=== PATIENT | female | born 1995 | race Caucasian/White ===

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

== ENCOUNTER 2017-05-05 15:13 | Emergency (ER) | END 2017-05-05 20:45 | disposition home or self-care (01) ==

== ENCOUNTER 2017-06-24 19:55 | Emergency (ER) | END 2017-06-24 22:53 | disposition home or self-care (01) ==

== ENCOUNTER 2017-10-06 11:18 | Emergency (ER) | END 2017-10-06 17:09 | disposition home or self-care (01) ==

== ENCOUNTER 2018-07-20 16:49 | Emergency (ER) | payer MEDICAID ==
[~2018-07-20] VITALS: Ht 154.9 cm; Wt 60.2 kg
[~2018-07-20 16:49] MED LIST changes: +ACET500C5 PO; +MEDR10TA2 PO; +NEOM1PAC TP; +TYL500 PO
[2018-07-20 17:45] VITALS: Ht 154.9 cm; Wt 60.2 kg
[2018-07-20] MEDS ORDERED: ONDANSETRON (ODT) 4 MG TAB ODT STA (18:58)
[2018-07-20] MEDS ORDERED: MECLIZINE 12.5 MG TAB PO ONE (19:00)
--- NOTE | 2018-07-20 19:00 | ERD ---
ER Documentation Chief Complaint Chief Complaint headache and dizziness today, had baby 06/04 HPI 22-year-old female, presents the emergency department, complaining of acute episode of dizziness, described as things spinning around, associated with nausea but no vomiting. The patient reports history of anemia and is a status post normal spontaneous vaginal delivery 8 weeks ago. She denies palpitations, no shortness of breath, no lightheadedness, no headache, no distal weakness, numbness or tingling. ROS All systems reviewed and are negative except as per history of present illness. Medications Home Meds Active Scripts Ondansetron Hcl* (Zofran*) 4 Mg Tablet, 4 MG PO Q8H PRN for NAUSEA AND/OR VOMITING, #15 TAB Prov:ROXANNA EUBANKS MD 07/20/18 Meclizine Hcl* (Antivert*) 12.5 Mg Tab, 12.5 MG PO Q6H PRN for DIZZINESS, #20 TAB Prov:ROXANNA EUBANKS MD 07/20/18 Ciprofloxacin Hcl* (Ciprofloxacin Hcl*) 250 Mg Tablet, 250 MG PO BID for 5 Days, #10 TAB Prov:ROXANNA EUBANKS MD 07/20/18 Cephalexin* (Keflex*) 500 Mg Capsule, 500 MG PO TID for 7 Days, CAP Prov:TOBY VIZCARRA PA-C 10/06/17 Neomycin Horne/Bacitrac Zn/Poly (Triple Antibiotic Ointment) 1 Each Oint.pack, 1 EACH TP TID for 7 Days Prov:ISMA JERONIMO MD 06/24/17 Acetaminophen* (Tylophen*) 500 Mg Capsule, 1 CAP PO Q6H PRN for PAIN AND OR ELEVATED TEMP, #15 CAP Prov:ISMA JERONIMO MD 06/24/17 Acetaminophen* (Tylenol*) 500 Mg Tab, 500 MG PO Q4H PRN for MILD PAIN LEVEL 1-3, #20 TAB Prov:ALEX TRACEY DO 05/05/17 Medroxyprogesterone Acetate* (Provera*) 10 Mg Tablet, 10 MG PO DAILY for 5 Days, TAB Prov:ALEX TRACEY DO 05/05/17 Cephalexin* (Keflex*) 500 Mg Capsule, 500 MG PO QID for 7 Days, CAP Prov:TOBY VIZCARRA PA-C 05/19/16 Acetaminophen* (Tylenol*) 325 Mg Tablet, 2 TAB PO Q6 PRN for PAIN AND OR ELEVATED TEMP, #20 TAB Prov:ARTI JOVEL 04/08/16 Cephalexin* (Keflex*) 500 Mg Capsule, 500 MG PO BID for 7 Days, CAP Prov:ARTI JOVEL 04/08/16 Allergies Allergies: Coded Allergies: No Known Allergy (Unverified , 05/19/16) PMhx/Soc History of Surgery: Yes (CAESARIAN SECTION) Anesthesia Reaction: No Hx Neurological Disorder: No Hx Respiratory Disorders: No Hx Cardiac Disorders: No Hx Psychiatric Problems: No Hx Miscellaneous Medical Probl: No Hx Alcohol Use: No Hx Substance Use: No Hx Tobacco Use: No Physical Exam Vitals Vital Signs Date Temp Pulse Resp B/P (MAP) Pulse Ox O2 O2 Flow FiO2 Time Delivery Rate 07/20/18 98.4 58 18 100/54 98 22:05 (69) 07/20/18 97.9 65 18 115/59 99 17:45 (77) Physical Exam Patient is in no acute distress, vital signs stable. Alert and fully oriented. HEENT: PERRLA, EOMI, Sclera and conjunctiva appear normal, Canals clear, tympanic membranes WNL. THROAT: Normal oropharynx. NECK: Supple, No lymphadenopathy. Full ROM without pain or tenderness. HEART: RRR, no rubs, murmurs, clicks or gallops. LUNGS: Clear to auscultation. ABDOMEN: Soft, non-tender without masses or hepatosplenomegaly. EXTREMITIES: No edema bilaterally. BACK: Full ROM, no deformity, normal back exam NEURO: Cranial nerves grossly intact, no motor or sensory deficit. Mild horizontal nystagmus while the patient was looking straight ahead with mildly abnormal head impulse test. Result Diagram: 07/20/18202407/20/182024 Results 24 hrs Laboratory Tests Test 07/20/18 19:28 07/20/18 19:29 07/20/18 20:25 Urine Color YELLOW Urine Clarity CLOUDY Urine pH 6.0 Urine Specific [place] 1.016 Urine Ketones NEGATIVE mg/dL Urine Nitrite NEGATIVE mg/dL Urine Bilirubin NEGATIVE mg/dL Urine Urobilinogen NEGATIVE mg/dL Urine Leukocyte Esterase 1+ Lily/ul Urine Microscopic RBC 1 /HPF Urine Microscopic WBC 4 /HPF Urine Squamous Epithelial Cells MODERATE /HPF Urine Bacteria FEW /HPF Urine Hemoglobin NEGATIVE mg/dL Urine Glucose NEGATIVE mg/dL Urine Total Protein NEGATIVE mg/dl POC Beta HCG, Qualitative NEGATIVE White Blood Count 7.0 10^3/ul Red Blood Count 3.78 10^6/ul Hemoglobin 10.2 g/dl Hematocrit 33.2 % Mean Corpuscular Volume 87.8 fl Mean Corpuscular Hemoglobin 27.0 pg Mean Corpuscular 30.7 g/dl Hemoglobin Concent Red Cell Distribution Width 15.3 % Platelet Count 221 10^3/UL Mean Platelet Volume 10.7 fl Immature Granulocytes % 0.300 % Neutrophils % 58.1 % Lymphocytes % 33.8 % Monocytes % 6.8 % Eosinophils % 0.7 % Basophils % 0.3 % Nucleated Red Blood Cells % 0.0 /100WBC Immature Granulocytes # 0.020 10^3/ul Neutrophils # 4.1 10^3/ul Lymphocytes # 2.4 10^3/ul Monocytes # 0.5 10^3/ul Eosinophils # 0.1 10^3/ul Basophils # 0.0 10^3/ul Nucleated Red Blood Cells # 0.0 10^3/ul Sodium Level 141 mmol/L Potassium Level 3.8 mmol/L Chloride Level 109 mmol/L Carbon Dioxide Level 25 mmol/L Anion Gap 7 Blood Urea Nitrogen 9 mg/dl Creatinine 0.52 mg/dl Est Glomerular Filtrat > 60 mL/min Rate mL/min Glucose Level 86 mg/dl Calcium Level 8.9 mg/dl Serum HCG, Qualitative NEGATIVE Current Medications Medications Dose Sig/Lukas Start Time Status Last (Trade) Ordered Route PRN Stop Time Admin Dose Reason Admin Ondansetron 4 mg ONCE STAT 07/20/18 DC 07/20/18 HCl (Zofran ODT 18:58 07/20/18 19:13 Odt) 19:05 Meclizine 12.5 mg ONCE ONCE 07/20/18 DC 07/20/18 HCl PO 19:00 07/20/18 19:13 (Antivert) 19:05 EKG read by me: Rate/Rhythm: Regular rate and rhythm at a rate of 50 Intervals: Normal No acute ST changes. No T wave inversion Impression: No evidence of acute ischemia or arrhythmia Procedures/MDM Vital signs stable, neurovascular exam revealed horizontal nystagmus while the patient was looking straight ahead with mildly abnormal head impulse test. Differential diagnosis include but not limited to dehydration, cardiac arrhyt hmia, , Mnire's disease, vestibular neuronitis, migraine, vertigo, side effects of the medications, hypoglycemia. Less likely but is still a possibility, intracranial hemorrhage, ischemic stroke, [employer] neoplasm. Pertinent Data: 12 Lead ECG: Sinus rhythm, no ST changes, normal T wave, normal intervals Labs: CBC: normal, BMP: normal kidney function, normal electrolytes. Glucose: normal Urine : Negative. Physical examination and clinical presentation consistent most likely with positional vertigo with an incidental finding of a urinary tract infection. During the ED course the patient remained stable, no new complaints. Results and clinical impression discussed with patient who agrees with management. The patient is stable to be treated outpatient and will be discharged home with instructions to follow up with the primary care provider in the next 48h. If symptoms persist, worsen or new symptoms develop, then patient should return to the ED immediately. Instructions explained and given directly by me to the patient with acknowledgment and demonstrated understanding. Disclaimer: Inadvertent spelling and grammatical errors are likely due to EHR/dictation software use and do not reflect on the overall quality of patient care. Also, please note that the electronic time recorded on this note does not necessarily reflect the actual time of the patient encounter. Departure Diagnosis: Primary Impression: Vertigo Additional Impressions: UTI (urinary tract infection) Anemia Condition: Stable Patient Instructions: Vertigo, Unspecified, Understanding Urinary Tract Infections (UTIs), Anemia, Iron Deficiency (Adult) Additional Instructions: Thank you very much for allowing us to participate in your care. Your health and safety is our top priority at [facility]. The evaluation in the emergency department has been done to rule out an acute emergency. Chronic conditions like malignancy or other diseases have not been evaluated; therefore, you need to follow up with a primary care provider in the next 48h. If symptoms persist, worsen or new symptoms develop, then patient should return to the ED immediately. Call your primary care doctor TOMORROW for an appointment during the next 2-4 days and bring all the information provided. Have prescriptions filled and follow precisely the directions on the label. If the symptoms get worse and your provider is unavailable, return to the Emergency Department immediately. ROXANNA EUBANKS MD Jul 20, 2018 19:00
[2018-07-20] MEDS ORDERED: CIPR-193 PO (20:53)
[2018-07-20] MEDS ORDERED: ONDA4TAB8 PO (20:53)
[2018-07-20] MEDS ORDERED: MECL12.574 PO (20:53)
[2018-07-20 22:05] VITALS: BP 100/54; PULSE 58; RESP 18
== END 2018-07-20 22:06 | disposition home or self-care (01) ==
LOC: FTE 16:49
DX: N39.0 Urinary tract infection, site not specified (principal); D64.9 Anemia, unspecified
CPT/HCPCS: 80048; 81001; 81025; 84703; 85025; 93005; Z7502; Z7610